=== PATIENT | male | born 1955 | race Caucasian/White ===

== ENCOUNTER → 2017-01-26 | Outpatient (CLI) | payer OTHER ==
--- NOTE | 2017-01-26 18:23 | RADIOLOGY REPORT (SQ) ---
EXAM DESCRIPTION: U/S RETROPERITON (RENAL/AORTA) COMPLETED DATE/TIME: 01/26/2017 3:51 pm REASON FOR STUDY: CKD STAGE 3 (MODERATE) N18.3 CHRONIC KIDNEY DISEASE, STAGE 3 (MODERATE) COMPARISON: None. TECHNIQUE: Dynamic and static grayscale images acquired of the kidneys and bladder and recorded on P ACS. Additional selected color Doppler and spectral images recorded. LIMITATIONS: None. FINDINGS: RIGHT KIDNEY: Normal size, 10.5 cm. Normal echogenicity. No solid or suspicious masses. No hydronephrosis. No calcifications. LEFT KIDNEY: Normal size, 9.9 cm. Normal echogenicity. No solid or suspicious masses. No hydronephro sis. No calcifications. BLADDER: Urinary bladder is normal. A right ureteral jet was seen. OTHER FINDINGS: No other significant finding. IMPRESSION: NORMAL RENAL AND BLADDER ULTRASOUND. TECHNICAL DOCUMENTATION: JOB ID: [id number] [employer]- All Rights Reserved
== END ==
LOC: RAD 15:14
PROVIDERS: ATTEND Internal Medicine Nephrology
DX: N18.3 Chronic kidney disease, stage 3 (moderate) (principal)
CPT/HCPCS: 76770

== ENCOUNTER 2017-07-23 21:27 | Emergency (ER) | payer MEDICARE, OTHER ==
--- NOTE | 2017-07-23 22:08 | RADIOLOGY REPORT (SQ) ---
EXAM DESCRIPTION: CT HEAD WITHOUT COMPLETED DATE/TIME: 07/23/2017 9:50 pm REASON FOR STUDY: stroke like sx COMPARISON: None. TECHNIQUE: Axial images acquired through the brain without intravenous contrast. Images reviewed wi th bone, brain and subdural windows. Images stored on PACS. All CT scanners at this facility use dose modulation, iterative reconstruction, and/or weight based d osing when appropriate to reduce radiation dose to as low as reasonably achievable (ALARA). [facility]: Dose Right [facility]: CareDose [facility]: Dose Right [facility]: Teradose 4D [facility]: [employer] RADIATION DOSE: CT Rad equipment meets quality standard of care and radiation dose reduction techniq ues were employed. CTDIvol: 64.6 mGy. DLP: 1163 mGy-cm. mGy. LIMITATIONS: None. FINDINGS: VENTRICLES: Prominent. CEREBRUM: No masses. No hemorrhage. No midline shift. Areas of low density in the white matter mos t likely due to chronic micro-vascular ischemic change. Small areas of low attenuation involving the right posterior temporal lobe seen on series 2, image 15 could represent subacute or chronic infarct ion. No definite evidence for acute infarction. CEREBELLUM: No masses. No hemorrhage. No alteration of density. No evidence for acute infarction. EXTRAAXIAL SPACES: Mild age-related involutional change. No fluid collections. No masses. ORBITS AND GLOBE: No intra- or extraconal masses. Normal contour of globe without masses. CALVARIUM: No fracture. PARANASAL SINUSES: No fluid or mucosal thickening. SOFT TISSUES: No mass or hematoma. OTHER: No other significant finding. IMPRESSION: AREAS OF LOW ATTENUATION INVOLVING THE RIGHT POSTERIOR TEMPORAL LOBE COULD REPRESENT SUB ACUTE OR CHRONIC INFARCTION. CORRELATE WITH PATIENT'S CLINICAL SYMPTOMS. NO DEFINITE CT EVIDENCE OF ACUTE ISCHEMIA, HEMORRHAGE, OR MASS LESION. MRI IS AVAILABLE FOR FURTHER EVALUATE CHARACTERIZATION CLINICALLY INDICATED. EVIDENCE OF ACUTE STROKE: NO. TECHNICAL DOCUMENTATION: JOB ID: [id number] Quality ID # [id number]: Final reports with documentation of one or more dose reduction techniques (e.g., Au tomated exposure control, adjustment of the mA and/or kV according to patient size, use of iterative reconstruction technique) 2010 [employer]- All Rights Reserved Reading location - IP/workstation name: [email or web address]
--- NOTE | 2017-07-23 22:12 | ER Document Report ---
ED NIH Stroke Scale - NIH Stroke Scale *: 1. NIH scale should be completed with appropriate accompanying assessment tools. *: 2. The NIH should reflect what the patient is capable of doing and should not be coached by the clinician. 1a. Level of Consciousness: 0=Alert;keenly responsive -: 1=Drowsy -: 2=Obtunded -: 3=Coma/unresponsive or reflex to noxious stimuli. 1a. Responses: 0 1b. Orientation Questions: a. What month is it? -: b. How old are you? -: 0=Answers both questions correctly. -: 1=Answers one question correctly or patient is intubated or has orotracheal trauma. -: 2=Answers neither question correctly. 1b. Responses: 0 1c. Response to commands: a. Open and close eyes? -: b. Validation Consultant and release hand? -: Credit is given despite weakness. Demonstration of task is permitted. Substitute command if hands cannot be used. -: 0=Performs both tasks correctly -: 1=Performs one task correctly -: 2=Performs neither task correctly 1c. Responses: 0 2. Gaze: Establish eye contact and instruct patient to "Follow my finger" -: 0=Normal -: 1=Partial gaze palsy. Gaze is abnormal in one or both eyes, but where forced deviation or total gaze paresis is not present. -: 2=Forced deviation or total gaze paresis. 2. Responses: 0 3. Visual [place]: Sees fingers in all four quadrants. -: 0=No visual loss. -: 1=Partial hemianopsia. -: 2=Complete hemianopsia. -: 3=Bilateral hemianopsia (including Cortical blindness) 3. Responses: 0 4. Facial Movement: Instruct patient to: -: a. Show me your teeth -: b. Raise your eyebrows -: c. Close your eyes -: d. Smile -: 0=Normal symmetrical movement -: 1=Minor paralysis (flattened nasolabial fold, asymmetry on smiling). -: 2=Partial paralysis (total or near total paralysis of lower face). -: 3=Complete paralysis of upper and lower face 4. Responses: 0 5. Motor functions (left arm): Alternate sides and extend each arm with palms down (90 degrees if sitting or 45 degrees for supine). -: 0=No drift;limb holds for full 10 seconds. -: 1=Drift; limb holds but drifts down before full 10 seconds, but does not hit bed. -: 2=Some effort against gravity; limb cannot get to or maintain position. -: 3=No effort against gravity; limb falls. -: 4=No movement. -: UN=Amputation, joint fusion, explain in comments. 5. Responses (left arm): 0 5. Motor Functions (right arm): Alternate sides and extend each arm with palms down (90 degrees if sitting or 45 degrees for supine). -: 0=No drift;limb holds for full 10 seconds. -: 1=Drift; limb holds but drifts down before full 10 seconds, but does not hit bed. -: 2=Some effort against gravity; limb cannot get to or maintain position. -: 3=No effort against gravity; limb falls. -: 4=No movement. -: UN=Amputation, joint fusion, explain in comments. 5. Responses (right arm): 0 6. Motor Functions (left leg): With patient lying supine, alternate sides and extend each leg (30 degrees always while supine). -: 0=No drift, leg holds position for full 5 seconds -: 1=Drift; leg falls before full 5 seconds but does not hit bed. -: 2=Some effort against gravity, leg falls to bed but some effort against gravity. -: 3=No effort against gravity, leg falls to bed immediately. -: 4=No movement. -: UN=Amputation, joint fusion; explain in comments. 6. Responses (left leg): 0 6. Motor Functions (right leg): With patient lying supine, alternate sides and extend each leg (30 degrees always while supine). -: 0=No drift, leg holds position for full 5 seconds -: 1=Drift; leg falls before full 5 seconds but does not hit bed. -: 2=Some effort against gravity, leg falls to bed but some effort against gravity. -: 3=No effort against gravity, leg falls to bed immediately. -: 4=No movement. -: UN=Amputation, joint fusion; explain in comments. 6. Responses (right leg): 0 7. Limb Ataxia: With eyes open instruct patient to: -: a. "Touch your finger to your nose". -: b. "Touch your heel to your [place]" -: 0=Absent -: 1=Present in one limb. -: 2=Present in two limbs. -: UN=Amputation or joint fusion; explain in comments. 7. Responses: 0 8. Sensory: Test sensation using pinprick or noxious stimuli. Test as many body parts as possible. -: 0=Normal;no sensory loss -: 1=Mile to moderate sensory loss (patient feels pin prick but is less sharp on affected side). -: 2=Severe or total sensory loss. 8. Responses: 1 9. Best Language: Instruct patient to: -: a. "Describe what you see in this picture." -: b. "Name the items in this picture." -: c. "Read these sentences." -: 0=No aphasia, normal -: 1=Mild to moderate aphasia. -: 2=Severe aphasia -: 3=Mute, global aphasia, no usable speech or auditory comprehension. 9. Responses: 0 10. Articulation, Dysarthia: Instruct patient to: -: "Read these words" or "Repeat these words" -: 0=Normal -: 1=Mild to moderate; patient may slur some words but can be understood without difficulty. -: 2=Severe; patients speech so slurred as to be unintelligible in the absence of dysphasia. -: UN=Intubated or other physical barrier, explain in comments. 10. Responses: 0 11. Extinction or inattention: 0=No abnormality -: 1= Visual, tactile, auditory, spatial, or personal inattention or extinction to bilateral simulation in one or the sensory modalities. -: 2=Profound lexy-inattention or lexy-inattention to more than one modality; does not recognize own hand. 11. Responses: 0 Total Score: 1 Notes: mild decreased sensation in left upper extremity which patient says is old from previous stroke.
--- NOTE | 2017-07-23 22:24 | ER Document Report ---
ED General - General Chief Complaint: S/S of Possible Stroke Stated Complaint: POSSIBLE STROKE SYMPTOMS Time Seen by Provider: 07/23/17 21:58 Notes: Patient is a 62-year-old male with a history of stroke who presents with complaint of onset of numbness to his right arm and some weakness to his right arm that started around 9 PM. Patient says he quickly developed almost complete numbness to his right hand and arm. He says his symptoms have since resolved. He says he has some chronic numbness to left side from a previous stroke that occurred in 2013. He is currently on Plavix. He denies a headache. He denies any other complaints at this time. He otherwise feels well. Patient is on aspirin and Plavix which he took today. TRAVEL OUTSIDE OF THE [place] IN LAST 30 DAYS: No - Related Data Allergies/Adverse Reactions: No Known Allergies Allergy (Unverified 07/23/17 21:35) Past Medical History - Social History Smoking Status: Never Smoker Frequency of alcohol use: None Drug Abuse: None Family History: Reviewed & Not Pertinent Review of Systems - Review of Systems Notes: My Normal Review Basic REVIEW OF SYSTEMS: CONSTITUTIONAL : Denies fever, chills, or sweats. Denies recent illness. EENT: Denies eye, ear, throat, or mouth pain or symptoms. Denies nasal or sinus congestion. CARDIOVASCULAR: Denies chest pain. RESPIRATORY: Denies cough, cold, or chest congestion. Denies shortness of breath, difficulty breathing, or wheezing. GASTROINTESTINAL: Denies abdominal pain. Denies nausea, vomiting, or diarrhea. Denies constipation. Last BM: MUSCULOSKELETAL: Denies neck or back pain or joint pain or swelling. SKIN: Denies rash or skin lesions. NEUROLOGICAL: Weakness and numbness into right arm and hand. ALL OTHER SYSTEMS REVIEWED AND NEGATIVE. Physical Exam - Vital signs Vitals: Temp Pulse Resp BP Pulse Ox 98.5 F 70 18 120/66 98 07/23/17 21:43 07/23/17 21:43 07/23/17 21:43 07/23/17 21:43 07/23/17 21:43 - Notes Notes: General Appearance: Well nourished, alert, cooperative, no acute distress, no obvious discomfort. Well-appearing. Vitals: reviewed, See vital signs table. Head: no swelling or tenderness to the head Eyes: PERRL, EOMI, Conjuctiva clear Mouth: No decreasd moisture Lungs: No wheezing, No rales, No rhonci, No accessory muscle use, good air exchange bilaterally. Heart: Normal rate, Regular rythm, No murmur, no rub Abdomen: Normal BS, soft, No rigidity, No abdominal tenderness, No guarding, no rebound, no abdominal masses, no organomegaly Extremities: strength 5/5 in all extremities, good pulses in all extremities, no swelling or tenderness in the extremities, no edema. Skin: warm, dry, appropriate color, no rash Neuro: speech clear, oriented x 3, normal affect, responds appropriately to questions. Cranial nerves II through XII are intact. Distal sensation intact. Patient is able to raise both arms off the bed and hold in the ear for greater than 5 seconds without any drift. Patient is able lift both legs off the bed and holding the air for greater than 5 seconds without any drift. Normal distal sensation with exception of patient says he has just very slight decreased sensation in left hand which is chronic from his previous stroke. Course - Re-evaluation Re-evalutation: 07/23/17 23:28 Patient continues to not show any new signs of stroke. I suspect he most likely had a TIA being that he has strokelike symptoms which completely resolved. Reevaluation patient looks well. He was able to ambulate without any difficulty. He says his gait is at baseline. Patient continues to not have any new focal weakness or numbness. His right side continues to be completely asymptomatic. His cranial nerves are completely intact. He has good strength in his left side as well. He just has a very small amount of numbness on the left side which is chronic. Patient is requesting discharge home. I did review with him the risks and benefits of staying versus going home. Informed him that he is at increased risk of stroke for next 24-48 hours due to just having a TIA. I informed him that because of this we do recommend staying for observation however he does have the option of going home and followed up closely with his primary care doctor tomorrow. I informed him that if he has any recurrence of his symptoms he must return to ER immediately. Patient is already on aspirin and Plavix. There is no further medications at this time. Patient agrees with plan will be discharged home. Dictation of this chart was performed using voice recognition software; therefore, there may be some unintended grammatical errors. - Vital Signs Vital signs: Temp Pulse Resp BP Pulse Ox 98.5 F 70 15 122/70 96 07/23/17 21:43 07/23/17 21:43 07/23/17 22:16 07/23/17 22:16 07/23/17 22:16 - Laboratory Result Diagrams: 07/23/17 22:00 07/23/17 22:00 Laboratory results interpreted by me: 07/23/17 07/23/17 22:00 22:00 Hgb 12.8 L Hct 37.7 L RDW 14.6 H Sodium 146.5 H Chloride 110 H BUN 28 H Creatinine 1.72 H Est GFR ( Amer) 49 L Est GFR (Non-Af Amer) 41 L Glucose 131 H Total Bilirubin 0.1 L - EKG Interpretation by Me Additional EKG results interpreted by me: 07/23/17 22:21 EKG is reviewed and interpreted by me. EKG shows normal sinus rhythm with a rate of [address] segment elevation or depression. No ischemic T-wave inversions. GA interval is prolonged. QRS duration and QTc intervals are within normal range. Discharge - Discharge Clinical Impression: TIA (transient ischemic attack) Qualifiers: Transient cerebral ischemia type: unspecified Qualified Code(s): G45.9 - Transient cerebral ischemic attack, unspecified Condition: Good Disposition: HOME, SELF-CARE Additional Instructions: Transient Ischemic Attack You have been diagnosed as having a transient ischemic attack (TIA). This is caused when an artery to the brain has been temporarily blocked. It can result in visual changes, difficulty with speech, and weakness or numbness -- usually limited to one side of the body. TIA symptoms usually resolve within an hour, but a TIA is serious, as it may be a warning sign of an impending stroke. To prevent further episodes, you may be placed on medication to reduce the possibility that your platelets will aggregate and form blood clots in the arteries that supply the brain. Usually, this includes aspirin and sometimes other platelet inhibitors. Further evaluation is often necessary to make an exact diagnosis as to where these blood clots are originating, and if anything else needs to be done to correct the problem. Call the physician or go to the emergency room if episodes occur with increasing frequency. If symptoms occur that don't go away within a few minutes , call 911. Please follow-up with your doctor tomorrow for reevaluation. As discussed with you, you are at increased risk for stroke over the next 24-48 hours. You must return to the ER immediately if you have any signs of stroke such as weakness or numbness that is new, slurred speech, confusion, or if you feel unwell. Please take your medications as prescribed. Referrals: BABAR RINCON MD [Primary Care Provider] - Follow up tomorrow
[2017-07-23 22:55] LABS: ABSOLUTE BASOPHILS # (AUTO) 0.1 10^3/uL (0.0-0.2); ABSOLUTE EOSINOPHILS # (AUTO) 0.4 10^3/uL (0.0-0.6); ABSOLUTE LYMPHOCYTES (AUTO) 2.1 10^3/uL (0.5-4.7); ABSOLUTE MONOCYTES (AUTO) 0.8 10^3/uL (0.1-1.4); ABSOLUTE NEUT (AUTO) 4.6 10^3/uL (1.7-8.2); BASOPHILS % (AUTO) 0.7 % (0-2); EOSINOPHILS % (AUTO) 4.9 % (0-6); HEMATOCRIT 37.7 % (37.9-51.0); HEMOGLOBIN 12.8 g/dL (13.5-17.0); LYMPHOCYTES % (AUTO) 26.7 % (13-45); MEAN CORPUSCULAR HEMOGLOBIN 28.6 pg (27.0-33.4); MEAN CORPUSCULAR HGB CONC 33.9 g/dL (32.0-36.0); MEAN CORPUSCULAR VOLUME 85 fl (80-97); MONOCYTES % (AUTO) 9.5 % (3-13); PLATELET COUNT 299 10^3/uL (150-450); RED BLOOD COUNT 4.46 10^6/uL (4.35-5.55); RED CELL DISTRIBUTION WIDTH 14.6 % (11.5-14.0); SEGMENTED NEUTROPHILS % (AUTO) 58.2 % (42-78); TOTAL CELLS COUNTED % (AUTO) 100 %; WHITE BLOOD COUNT 7.9 10^3/uL (4.0-10.5)
[2017-07-23 22:59] LABS: INTERNATIONAL RATION (INR) 0.96; PROTHROMBIN TIME 13.5 SEC (11.4-15.4)
[2017-07-23 23:00] LABS: ALANINE AMINOTRANSFERASE 32 U/L (21-72); ALBUMIN 4.4 g/dL (3.5-5.0); ALKALINE PHOSPHATASE 51 U/L (38-126); ANION GAP 11 (5-19); ASPARTATE AMINO TRANSFERASE 44 U/L (17-59); BILIRUBIN,DIRECT 0.1 mg/dL (0.0-0.4); BILIRUBIN,TOTAL 0.1 mg/dL (0.2-1.3); BLOOD UREA NITROGEN 28 mg/dL (7-20); CALCIUM 9.5 mg/dL (8.4-10.2); CARBON DIOXIDE 26 mmol/L (22-30); CHLORIDE 110 mmol/L (98-107); GLUCOSE 131 mg/dL (75-110); PARTIAL THROMBOPLASTIN TIME 31.8 SEC (23.5-35.8); POTASSIUM 3.8 mmol/L (3.6-5.0); SODIUM 146.5 mmol/L (137-145); TOTAL PROTEIN 6.8 g/dL (6.3-8.2)
[2017-07-23 23:39] VITALS: BP 139/79
--- NOTE | 2017-07-24 08:56 | EKG REPORT ---
SEVERITY:- ABNORMAL ECG - SINUS RHYTHM FIRST DEGREE AV BLOCK CONSIDER ANTEROSEPTAL INFARCT : Confirmed by: Vinod Jacobo MD 24-Jul-2017 08:55:27
== END 2017-07-23 23:52 | disposition home or self-care (01) ==
LOC: ER 21:27
DX: G45.9 Transient cerebral ischemic attack, unspecified (principal); R20.0 Anesthesia of skin; R53.1 Weakness; Z79.02 Long term (current) use of antithrombotics/antiplatelets
CPT/HCPCS: 36415; 70450; 80053; 85025; 85610; 85730; 93005; 93010; 99285

== ENCOUNTER → 2017-09-07 | Outpatient (CLI) | payer MEDICARE, OTHER ==
--- NOTE | 2017-09-07 17:57 | EKG REPORT ---
SEVERITY:- ABNORMAL ECG - SINUS RHYTHM FIRST DEGREE AV BLOCK CONSIDER ANTEROSEPTAL INFARCT : Confirmed by: Vinod Jacobo MD 07-Sep-2017 17:56:50
== END ==
LOC: OD 13:18
PROVIDERS: ATTEND Obstetrics & Gynecology
DX: I25.10 Atherosclerotic heart disease of native coronary artery without angina pectoris (principal)
CPT/HCPCS: 93005; 93010

== ENCOUNTER 2017-10-31 13:12 | Emergency (ER) | payer MEDICARE, OTHER ==
[2017-10-31 13:32] VITALS: BP 101/62
--- NOTE | 2017-10-31 13:48 | ER Document Report ---
HPI - HPI Pain Level: 3 Context: patient is a 62 year old male who presents emergency department the chief complaint of insect bite. Patient states that he was working outside when a spider web came down hit in the face. Patient states that he bit his upper lip and inside of his right arm. He denies any swelling, redness, pain, numbness or tingling. Patient denies any allergies. Past Medical History - Social History Smoking Status: Current Every Day Smoker Chew tobacco use (# tins/day): No Frequency of alcohol use: None Drug Abuse: None Family History: Reviewed & Not Pertinent Patient has suicidal ideation: No Patient has homicidal ideation: No - Past Medical History Cardiac Medical History: Reports: Hx Hypertension Endocrine Medical History: Reports: Hx Diabetes Mellitus Type 2 Renal/ Medical History: Denies: Hx Peritoneal Dialysis Past Surgical History: Reports: Hx Appendectomy Vertical Provider Document - CONSTITUTIONAL Agree With Documented VS: Yes Notes: PHYSICAL EXAM GENERAL: Alert, interacts well. HEAD: Normocephalic, atraumatic. EYES: Pupils equal, round, and reactive to light. Extraocular movements intact. ENT: Oral mucosa moist, tongue midline. Patient has a superficial abrasion with half a centimeter underlying induration in the center of the upper lip. NECK: Full range of motion. Supple. Trachea midline. EXTREMITIES: Moves all 4 extremities spontaneously. No edema, radial and dorsalis pedis pulses 2/4 bilaterally. No cyanosis. NEUROLOGICAL: Alert and oriented x4. Normal speech. PSYCH: Normal affect, normal mood. SKIN: Warm, dry, normal turgor. No rashes or lesions noted. Patient has a insect bite on the medial aspect of the right arm without any surrounding bruising, induration or erythema - INFECTION CONTROL TRAVEL OUTSIDE OF THE [place] IN LAST 30 DAYS: No Course - Re-evaluation Re-evalutation: 10/31/17 13:48 Patient is a 62-year-old male is hemodynamically stable, no acute distress and afebrile. Presentation is consistent with acute insect bite there is no evidence of surrounding erythema, associated vascular neurological injury. Will discharge patient home with strict return precautions - Vital Signs Vital signs: Temp Pulse Resp BP Pulse Ox 99.0 F 68 14 101/62 97 10/31/17 13:30 10/31/17 13:30 10/31/17 13:30 10/31/17 13:30 10/31/17 13:30 Discharge - Discharge Clinical Impression: Insect bite Qualifiers: Encounter type: initial encounter Qualified Code(s): W57.XXXA - Bitten or stung by nonvenomous insect and other nonvenomous arthropods, initial encounter Condition: Good Disposition: HOME, SELF-CARE Instructions: Insect Bites ([facility]) Referrals: BABAR RINCON MD [Primary Care Provider] - Follow up in 1 week
[2017-10-31] MEDS ORDERED: DIPHENHYDRAMINE HCL 25 MG CAPSULE PO ONE (13:52)
[2017-10-31] MEDS ORDERED: ACETAMINOPHEN 325 MG TABLET PO ONE (13:52)
== END 2017-10-31 14:01 | disposition home or self-care (01) ==
LOC: ER 13:12
DX: S40.861A Insect bite (nonvenomous) of right upper arm, initial encounter (principal); S00.561A Insect bite (nonvenomous) of lip, initial encounter; W57.XXXA Bitten or stung by nonvenomous insect and other nonvenomous arthropods, initial encounter; I10 Essential (primary) hypertension; E11.9 Type 2 diabetes mellitus without complications; F17.200 Nicotine dependence, unspecified, uncomplicated
CPT/HCPCS: 99281; A9270 ×2

== ENCOUNTER 2017-11-03 01:32 | Inpatient (IN) | payer MEDICARE, OTHER ==
--- NOTE | 2017-11-03 02:12 | ER Document Report ---
ED General - General Chief Complaint: Numbness Stated Complaint: LEFT SIDE WEAKNESS Time Seen by Provider: 11/03/17 01:49 Notes: Patient is a 62-year-old male who presents with complaints of left-sided weakness. He has a previous stroke in 2013 with left him with some left-sided numbness but no actual dysfunction of the left side otherwise when he comes physical movement. He says around 12 hours ago he started noticing that he was weak on that side. Initially thought maybe is just exhausted; however, at that time he did not have any right-sided weakness at all. Since then his weakness has progressed and is actually feels as if his speech is slower than normal and is taking time to say exactly what he wants to say. He denies a headache. No chest pain. No shortness of breath. No fevers. No other complaints at this time. Patient is on Plavix. He said he took his Plavix today but has not yet taken his aspirin. TRAVEL OUTSIDE OF THE [place] IN LAST 30 DAYS: No - Related Data Allergies/Adverse Reactions: No Known Allergies Allergy (Unverified 07/23/17 21:35) Past Medical History - Social History Smoking Status: Unknown if Ever Smoked Frequency of alcohol use: None Drug Abuse: None Family History: Reviewed & Not Pertinent Patient has suicidal ideation: No Patient has homicidal ideation: No - Past Medical History Cardiac Medical History: Reports: Hx Hypertension Endocrine Medical History: Reports: Hx Diabetes Mellitus Type 2 Renal/ Medical History: Denies: Hx Peritoneal Dialysis Past Surgical History: Reports: Hx Appendectomy Review of Systems - Review of Systems Notes: My Normal Review Basic REVIEW OF SYSTEMS: CONSTITUTIONAL : Denies fever, chills, or sweats. Denies recent illness. EENT: Denies eye, ear, throat, or mouth pain or symptoms. Denies nasal or sinus congestion. CARDIOVASCULAR: Denies chest pain. RESPIRATORY: Denies cough, cold, or chest congestion. Denies shortness of breath, difficulty breathing, or wheezing. GASTROINTESTINAL: Denies abdominal pain. Denies nausea, vomiting, or diarrhea. GENITOURINARY: Denies difficulty urinating, painful urination, burning, frequency, or blood in urine. MUSCULOSKELETAL: Mild left shoulder pain SKIN: Denies rash or skin lesions. NEUROLOGICAL: Left-sided weakness ALL OTHER SYSTEMS REVIEWED AND NEGATIVE. Physical Exam - Vital signs Vitals: Temp Pulse Resp BP Pulse Ox 98.0 F 68 16 99/67 L 95 11/03/17 01:41 11/03/17 01:41 11/03/17 01:41 11/03/17 01:41 11/03/17 01:41 - Notes Notes: General Appearance: Well nourished, alert, cooperative, no acute distress, no obvious discomfort. Vitals: reviewed, See vital signs table. Head: no swelling or tenderness to the head Eyes: PERRL, EOMI, Conjuctiva clear Mouth: No decreasd moisture Lungs: No wheezing, No rales, No rhonci, No accessory muscle use, good air exchange bilaterally. Heart: Normal rate, Regular rythm, No murmur, no rub Abdomen: Normal BS, soft, No rigidity, No abdominal tenderness, No guarding, no rebound, no abdominal masses, no organomegaly Extremities: strength 5/5 in all extremities, good pulses in all extremities, no swelling or tenderness in the extremities, no edema. Skin: warm, dry, appropriate color, no rash Neuro: speech clear, oriented x 3, normal affect, responds appropriately to questions. Renal nerves II through XII are intact. Patient does have some chronic numbness to left side. On exam he is able to lift his left leg off the bed but is only able to keep it off the bed for 1-2 seconds. Right leg has normal strength. Patient is able lift his left arm off the bed but says he feels weaker than his right side. When doing finger to nose testing patient's right side has normal function. When using the patient's left hand he misses my finger and is very slow to be able to touch my finger and then go back to his nose. Gait not tested weeks patient says he has a very hard time standing and walking his own. Course - Re-evaluation Re-evalutation: 11/03/17 03:55 On reevaluation patient's symptoms have not improved. They have remained the same. We will give patient aspirin. He received Plavix earlier but has not yet had his aspirin. There is no evidence of bleeding on the skin and therefore aspirin is appropriate. I did speak with the hospitalist, Dr. Jc, who agrees to admit the patient. Dictation of this chart was performed using voice recognition software; therefore, there may be some unintended grammatical errors. - Vital Signs Vital signs: Temp Pulse Resp BP Pulse Ox 98.0 F 58 L 18 133/70 H 99 11/03/17 05:36 11/03/17 05:36 11/03/17 05:36 11/03/17 05:36 11/03/17 05:36 - Laboratory Result Diagrams: 11/03/17 02:28 11/03/17 02:28 Laboratory results interpreted by me: 11/03/17 11/03/17 02:28 02:28 Hgb 13.3 L RDW 14.8 H Chloride 110 H BUN 26 H Creatinine 1.51 H Est GFR ( Amer) 57 L Est GFR (Non-Af Amer) 47 L Glucose 183 H Total Bilirubin 0.1 L - EKG Interpretation by Me Additional EKG results interpreted by me: 11/03/17 02:22 EKG is reviewed and interpreted by me. EKG shows sinus rhythm with a rate of [address] segment elevation or depression. No ischemic T-wave inversions. Patient does have a MO interval of 240 given him a first-degree AV theodore block. QRS duration QTc intervals are within normal range. Old EKG for comparison is from September 07, 2017. Discharge - Discharge Clinical Impression: Stroke Qualifiers: CVA mechanism: unspecified Qualified Code(s): I63.9 - Cerebral infarction, unspecified Condition: Stable Disposition: ADMITTED OBSERVATION Admitting Provider: Hospitalist Unit Admitted: [facility]
--- NOTE | 2017-11-03 02:14 | ER Document Report ---
ED NIH Stroke Scale - NIH Stroke Scale *: 1. NIH scale should be completed with appropriate accompanying assessment tools. *: 2. The NIH should reflect what the patient is capable of doing and should not be coached by the clinician. 1a. Level of Consciousness: 0=Alert;keenly responsive -: 1=Drowsy -: 2=Obtunded -: 3=Coma/unresponsive or reflex to noxious stimuli. 1a. Responses: 0 1b. Orientation Questions: a. What month is it? -: b. How old are you? -: 0=Answers both questions correctly. -: 1=Answers one question correctly or patient is intubated or has orotracheal trauma. -: 2=Answers neither question correctly. 1b. Responses: 0 1c. Response to commands: a. Open and close eyes? -: b. Geography Head and release hand? -: Credit is given despite weakness. Demonstration of task is permitted. Substitute command if hands cannot be used. -: 0=Performs both tasks correctly -: 1=Performs one task correctly -: 2=Performs neither task correctly 1c. Responses: 0 2. Gaze: Establish eye contact and instruct patient to "Follow my finger" -: 0=Normal -: 1=Partial gaze palsy. Gaze is abnormal in one or both eyes, but where forced deviation or total gaze paresis is not present. -: 2=Forced deviation or total gaze paresis. 2. Responses: 0 3. Visual [place]: Sees fingers in all four quadrants. -: 0=No visual loss. -: 1=Partial hemianopsia. -: 2=Complete hemianopsia. -: 3=Bilateral hemianopsia (including Cortical blindness) 3. Responses: 0 4. Facial Movement: Instruct patient to: -: a. Show me your teeth -: b. Raise your eyebrows -: c. Close your eyes -: d. Smile -: 0=Normal symmetrical movement -: 1=Minor paralysis (flattened nasolabial fold, asymmetry on smiling). -: 2=Partial paralysis (total or near total paralysis of lower face). -: 3=Complete paralysis of upper and lower face 4. Responses: 0 5. Motor functions (left arm): Alternate sides and extend each arm with palms down (90 degrees if sitting or 45 degrees for supine). -: 0=No drift;limb holds for full 10 seconds. -: 1=Drift; limb holds but drifts down before full 10 seconds, but does not hit bed. -: 2=Some effort against gravity; limb cannot get to or maintain position. -: 3=No effort against gravity; limb falls. -: 4=No movement. -: UN=Amputation, joint fusion, explain in comments. 5. Responses (left arm): 1 5. Motor Functions (right arm): Alternate sides and extend each arm with palms down (90 degrees if sitting or 45 degrees for supine). -: 0=No drift;limb holds for full 10 seconds. -: 1=Drift; limb holds but drifts down before full 10 seconds, but does not hit bed. -: 2=Some effort against gravity; limb cannot get to or maintain position. -: 3=No effort against gravity; limb falls. -: 4=No movement. -: UN=Amputation, joint fusion, explain in comments. 5. Responses (right arm): 0 6. Motor Functions (left leg): With patient lying supine, alternate sides and extend each leg (30 degrees always while supine). -: 0=No drift, leg holds position for full 5 seconds -: 1=Drift; leg falls before full 5 seconds but does not hit bed. -: 2=Some effort against gravity, leg falls to bed but some effort against gravity. -: 3=No effort against gravity, leg falls to bed immediately. -: 4=No movement. -: UN=Amputation, joint fusion; explain in comments. 6. Responses (left leg): 2 6. Motor Functions (right leg): With patient lying supine, alternate sides and extend each leg (30 degrees always while supine). -: 0=No drift, leg holds position for full 5 seconds -: 1=Drift; leg falls before full 5 seconds but does not hit bed. -: 2=Some effort against gravity, leg falls to bed but some effort against gravity. -: 3=No effort against gravity, leg falls to bed immediately. -: 4=No movement. -: UN=Amputation, joint fusion; explain in comments. 6. Responses (right leg): 0 7. Limb Ataxia: With eyes open instruct patient to: -: a. "Touch your finger to your nose". -: b. "Touch your heel to your mcfarland" -: 0=Absent -: 1=Present in one limb. -: 2=Present in two limbs. -: UN=Amputation or joint fusion; explain in comments. 7. Responses: 1 7. If ataxia present choose as appropriate: Left arm 8. Sensory: Test sensation using pinprick or noxious stimuli. Test as many body parts as possible. -: 0=Normal;no sensory loss -: 1=Mile to moderate sensory loss (patient feels pin prick but is less sharp on affected side). -: 2=Severe or total sensory loss. 8. Responses: 1 9. Best Language: Instruct patient to: -: a. "Describe what you see in this picture." -: b. "Name the items in this picture." -: c. "Read these sentences." -: 0=No aphasia, normal -: 1=Mild to moderate aphasia. -: 2=Severe aphasia -: 3=Mute, global aphasia, no usable speech or auditory comprehension. 9. Responses: 1 10. Articulation, Dysarthia: Instruct patient to: -: "Read these words" or "Repeat these words" -: 0=Normal -: 1=Mild to moderate; patient may slur some words but can be understood without difficulty. -: 2=Severe; patients speech so slurred as to be unintelligible in the absence of dysphasia. -: UN=Intubated or other physical barrier, explain in comments. 10. Responses: 0 11. Extinction or inattention: 0=No abnormality -: 1= Visual, tactile, auditory, spatial, or personal inattention or extinction to bilateral simulation in one or the sensory modalities. -: 2=Profound lexy-inattention or lexy-inattention to more than one modality; does not recognize own hand. 11. Responses: 0 Total Score: 6
[2017-11-03 02:37] LABS: ABSOLUTE BASOPHILS # (AUTO) 0.1 10^3/uL (0.0-0.2); ABSOLUTE EOSINOPHILS # (AUTO) 0.4 10^3/uL (0.0-0.6); ABSOLUTE LYMPHOCYTES (AUTO) 1.6 10^3/uL (0.5-4.7); ABSOLUTE MONOCYTES (AUTO) 0.7 10^3/uL (0.1-1.4); BASOPHILS % (AUTO) 0.7 % (0-2); EOSINOPHILS % (AUTO) 5.4 % (0-6); HEMATOCRIT 38.7 % (37.9-51.0); HEMOGLOBIN 13.3 g/dL (13.5-17.0); LYMPHOCYTES % (AUTO) 20.5 % (13-45); MEAN CORPUSCULAR HEMOGLOBIN 28.9 pg (27.0-33.4); MEAN CORPUSCULAR HGB CONC 34.2 g/dL (32.0-36.0); MEAN CORPUSCULAR VOLUME 84 fl (80-97); MONOCYTES % (AUTO) 9.2 % (3-13); PLATELET COUNT 286 10^3/uL (150-450); RED CELL DISTRIBUTION WIDTH 14.8 % (11.5-14.0); SEGMENTED NEUTROPHILS % (AUTO) 64.2 % (42-78); TOTAL CELLS COUNTED % (AUTO) 100 %; WHITE BLOOD COUNT 7.8 10^3/uL (4.0-10.5)
[2017-11-03 02:43] LABS: INTERNATIONAL RATION (INR) 0.99; PROTHROMBIN TIME 13.6 SEC (11.4-15.4)
[2017-11-03 02:44] LABS: PARTIAL THROMBOPLASTIN TIME 30.9 SEC (23.5-35.8)
[2017-11-03 02:54] LABS: ALANINE AMINOTRANSFERASE 32 U/L (21-72); ALBUMIN 4.1 g/dL (3.5-5.0); ALKALINE PHOSPHATASE 56 U/L (38-126); ANION GAP 9 (5-19); ASPARTATE AMINO TRANSFERASE 26 U/L (17-59); BILIRUBIN,DIRECT 0.1 mg/dL (0.0-0.4); BILIRUBIN,TOTAL 0.1 mg/dL (0.2-1.3); BLOOD UREA NITROGEN 26 mg/dL (7-20); CALCIUM 9.6 mg/dL (8.4-10.2); CARBON DIOXIDE 26 mmol/L (22-30); CHLORIDE 110 mmol/L (98-107); GLUCOSE 183 mg/dL (75-110); POTASSIUM 4.4 mmol/L (3.6-5.0); SODIUM 144.8 mmol/L (137-145); TOTAL PROTEIN 6.4 g/dL (6.3-8.2)
--- NOTE | 2017-11-03 03:27 | RADIOLOGY REPORT (SQ) ---
EXAM DESCRIPTION: CT HEAD WITHOUT IV CONTRAST CLINICAL HISTORY: 62 years Male, stroke COMPARISON: 2.23.18 TECHNIQUE: No contrast. Axial images only. This exam was performed according to our departmental dose-optimization program, which includes automated exposure control, adjustment of the mA and/or kV according to patient size and/or use of iterative reconstruction technique. FINDINGS: No hemorrhage. No mass, mass effect, or midline shift. Mild chronic encephalomalacia of the right temporal lobe. Atherosclerosis Brain and extra-axial structures appear intact. IMPRESSION: No acute findings. Small chronic right temporal encephalomalacia may indicate prior infarct.
[2017-11-03] MEDS ORDERED: ASPIRIN 81 MG TABLET, CHEWABLE PO ONE (03:52)
[2017-11-03] MEDS ORDERED: MAGNESIUM HYDROXIDE SUSP 30 ML UDCUP PO PRN (04:00)
[2017-11-03] MEDS ORDERED: GLUCAGON,HUMAN RECOMB 1 MG INJ IM PRN (04:00)
[2017-11-03] MEDS ORDERED: ACETAMINOPHEN 325 MG TABLET PO PRN (04:00)
[2017-11-03] MEDS ORDERED: DEXTROSE 40% GEL 15 GM TUBE PO PRN ×2 (04:00)
[2017-11-03] MEDS ORDERED: DEXTROSE 50%-WATER 25 GM/50 ML DISP.SYRIN IV PRN ×2 (04:00)
[2017-11-03] MEDS ORDERED: DOCUSATE SODIUM 100 MG CAPSULE PO PRN (04:00)
[2017-11-03] MEDS: NORMAL SALINE 1000 ML 1,000 ML IV SCH ×2 (04:14→09:16)
[2017-11-03] MEDS ORDERED: HEPARIN SOD (PORCINE) 5,000 UNIT/ML 1 ML SYRINGE SUBCUT SCH (06:00)
--- NOTE | 2017-11-03 06:31 | PDOC H&P ---
History of Present Illness Admission Date/PCP: 11/03/17 04:23 Patient complains of: Left-sided weakness History of Present Illness: LACI NICHOLAS is a 62 year old male with a history of CVA and residual left- sided numbness intermittent dizziness, hypertension, diabetes, Tobacco Dependence and depression. Patient presents with 12 hours of weakness on the left side associated with dizziness, slurred speech and word finding difficulty. Symptoms have worsened prompting him to seek evaluation emergency room where his symptoms persist. He denies recent change in medications but admits missing Plavix and aspirin dose today. Initial biochemical and imaging workup are unremarkable with exception to former findings. He started on aspirin and Plavix, referred to the hospitalist for admission. Patient denies palpitations and has had a negative echocardiogram in the last 6 months in the workup of a murmur. The results of which she is told are normal. Past Medical History Cardiac Medical History: Reports: Hypertension Denies: Atrial Fibrillation, Congestive Heart Failure, Coronary Artery Disease Pulmonary Medical History: Reports: None EENT Medical History: Reports: None Neurological Medical History: Reports: Ischemic CVA Endocrine Medical History: Reports: Diabetes Mellitus Type 2 GI Medical History: Reports: None Musculoskeltal Medical History: Reports: None Skin Medical History: Reports: None Psychiatric Medical History: Reports: Depression Traumatic Medical History: Reports: None Hematology: Reports: None Past Surgical History Past Surgical History: Reports: Appendectomy Social History Information Source: Patient Lives with: Spouse/Significant other Smoking Status: Unknown if Ever Smoked Cigarettes Packs Per Day: 0.5 Number of Years Smokin Frequency of Alcohol Use: None Hx Recreational Drug Use: No Hx Prescription Drug Abuse: No - Advance Directive Resuscitation Status: Full Code Family History Family History: None - Unknown patient adopted Parental Family History Reviewed: Yes Children Family History Reviewed: Yes Sibling(s) Family History Reviewed.: Yes Medication/Allergy Allergies/Adverse Reactions: No Known Allergies Allergy (Unverified 07/23/17 21:35) Review of Systems Constitutional: ABSENT: chills, fever(s), headache(s), weight gain, weight loss Eyes: ABSENT: visual disturbances Ears: ABSENT: hearing changes Cardiovascular: ABSENT: chest pain, dyspnea on exertion, edema, orthropnea, palpitations Respiratory: ABSENT: cough, hemoptysis Gastrointestinal: ABSENT: abdominal pain, constipation, diarrhea, hematemesis, hematochezia, nausea, vomiting Genitourinary: ABSENT: dysuria, hematuria Musculoskeletal: ABSENT: joint swelling Integumentary: ABSENT: rash, wounds Neurological: ABSENT: abnormal gait, abnormal speech, confusion, dizziness, focal weakness, syncope Psychiatric: ABSENT: anxiety, depression, homidical ideation, suicidal ideation Endocrine: ABSENT: cold intolerance, heat intolerance, polydipsia, polyuria Hematologic/Lymphatic: ABSENT: easy bleeding, easy bruising Physical Exam Vital Signs: Temp Pulse Resp BP Pulse Ox 98.0 F 58 L 18 133/70 H 99 11/03/17 05:36 11/03/17 06:07 11/03/17 06:07 11/03/17 06:07 11/03/17 06:07 Intake & Output 11/01/17 11/02/17 11/03/17 11:59 11:59 11:59 Intake Total 10 Balance 10 Weight 91.172 kg General appearance: PRESENT: mild distress, well-developed, well-nourished Head exam: PRESENT: atraumatic, normocephalic Eye exam: PRESENT: conjunctiva pink, EOMI, PERRLA. ABSENT: scleral icterus Ear exam: PRESENT: normal external ear exam Mouth exam: PRESENT: moist, tongue midline Neck exam: ABSENT: carotid bruit, JVD, lymphadenopathy, thyromegaly Respiratory exam: PRESENT: clear to auscultation elenita. ABSENT: rales, rhonchi, wheezes Cardiovascular exam: PRESENT: RRR. ABSENT: diastolic murmur, rubs, systolic murmur Pulses: PRESENT: normal dorsalis pedis pul Vascular exam: PRESENT: normal capillary refill GI/Abdominal exam: PRESENT: normal bowel sounds, soft. ABSENT: distended, guarding, mass, organolmegaly, rebound, tenderness Rectal exam: PRESENT: deferred Extremities exam: PRESENT: full ROM. ABSENT: calf tenderness, clubbing, pedal edema Musculoskeletal exam: PRESENT: other - Definite 4+ strength on the left side Neurological exam: PRESENT: alert, awake, oriented to person, oriented to place , oriented to time, oriented to situation, CN II-XII grossly intact. ABSENT: motor sensory deficit Psychiatric exam: PRESENT: appropriate affect, normal mood. ABSENT: homicidal ideation, suicidal ideation Skin exam: PRESENT: dry, intact, warm. ABSENT: cyanosis, rash Results Impressions: Head CT 11/03/17 02:07 IMPRESSION: No acute findings. Small chronic right temporal encephalomalacia may indicate prior infarct. Assessment & Plan - Diagnosis (1) Diabetes Is this a current diagnosis for this admission?: Yes Plan: Home regiment with exception to metformin and sliding scale Humalog, follow-up A1c (2) Left-sided weakness Is this a current diagnosis for this admission?: Yes Plan: Acute CVA, CVA care set likely secondary to missed aspirin and Plavix. Resume Plavix and aspirin, Lipitor ordered, follow-up lipid profile, physical therapy and Occupational Therapy (3) Tobacco abuse Is this a current diagnosis for this admission?: Yes Plan: Tobacco Dependence patient received tobacco cessation counseling and offered nicotine replacement options - Time Time Spent: 50 to 70 Minutes - Inpatient Certification Medical Necessity: Need Close Monitoring Due to Risk of Patient Decompensation
[2017-11-03 07:44] LABS: ABSOLUTE BASOPHILS # (AUTO) 0.1 10^3/uL (0.0-0.2); ABSOLUTE EOSINOPHILS # (AUTO) 0.5 10^3/uL (0.0-0.6); ABSOLUTE MONOCYTES (AUTO) 0.7 10^3/uL (0.1-1.4); ABSOLUTE NEUT (AUTO) 4.5 10^3/uL (1.7-8.2); BASOPHILS % (AUTO) 0.8 % (0-2); EOSINOPHILS % (AUTO) 5.8 % (0-6); HEMOGLOBIN 12.7 g/dL (13.5-17.0); MEAN CORPUSCULAR HEMOGLOBIN 28.8 pg (27.0-33.4); MEAN CORPUSCULAR HGB CONC 34.3 g/dL (32.0-36.0); MEAN CORPUSCULAR VOLUME 84 fl (80-97); MONOCYTES % (AUTO) 9.1 % (3-13); PLATELET COUNT 269 10^3/uL (150-450); RED BLOOD COUNT 4.41 10^6/uL (4.35-5.55); RED CELL DISTRIBUTION WIDTH 14.5 % (11.5-14.0); SEGMENTED NEUTROPHILS % (AUTO) 58.3 % (42-78); TOTAL CELLS COUNTED % (AUTO) 100 %; WHITE BLOOD COUNT 7.8 10^3/uL (4.0-10.5)
[2017-11-03 07:59] LABS: ANION GAP 8 (5-19); BLOOD UREA NITROGEN 24 mg/dL (7-20); CALCIUM 9.3 mg/dL (8.4-10.2); CARBON DIOXIDE 25 mmol/L (22-30); CHLORIDE 112 mmol/L (98-107); GLUCOSE 145 mg/dL (75-110); POTASSIUM 4.6 mmol/L (3.6-5.0); SODIUM 144.9 mmol/L (137-145)
--- NOTE | 2017-11-03 08:14 | EKG REPORT ---
SEVERITY:- ABNORMAL ECG - SINUS RHYTHM FIRST DEGREE AV BLOCK : Confirmed by: Karina Fournier MD 03-Nov-2017 08:14:24
[2017-11-03 08:26] LABS: PHOSPHORUS 3.4 mg/dL (2.5-4.5)
[2017-11-03] MEDS: ENOXAPARIN SODIUM INJ 40 MG/0.4 ML DISP.SYRIN SUBCUT SCH ×2 (09:17→12:14)
[2017-11-03] MEDS: CITALOPRAM HYDROBROMIDE 20 MG TABLET PO SCH (09:18)
[2017-11-03] MEDS: ASPIRIN 325 MG TABLET PO SCH (09:18)
[2017-11-03] MEDS: LEVOTHYROXINE SODIUM 0.025 MG TABLET PO SCH (09:18)
[2017-11-03] MEDS: CLOPIDOGREL BISULFATE 75 MG TABLET PO SCH (09:20)
[2017-11-03] MEDS: PSYLLIUM SEED-SF 5.85 GM PACKET PO SCH (09:37)
[2017-11-03] MEDS ORDERED: ASPIRIN 81 MG TABLET, ENT COATED PO SCH (10:00)
[2017-11-03] MEDS ORDERED: FENOFIBRATE NANOCRYSTALLIZED 145 MG TABLET PO SCH ×2 (10:00→18:00)
[2017-11-03] MEDS ORDERED: OMEGA 3 FATTY ACIDS PO SCH (10:00)
[2017-11-03] MEDS ORDERED: GABAPENTIN 300 MG CAPSULE PO SCH ×2 (10:00→18:00)
--- NOTE | 2017-11-03 12:08 | RADIOLOGY REPORT (SQ) ---
EXAM DESCRIPTION: MRI HEAD WITHOUT COMPLETED DATE/TIME: 11/03/2017 11:52 am REASON FOR STUDY: cva COMPARISON: CT dated 11/03/2017. TECHNIQUE: Multiplanar imaging includes non-contrasted T1, T2, FLAIR, and diffusion with ADC map seq uences. Images stored on PACS. LIMITATIONS: None. FINDINGS: ANATOMY: No anomalies. Normal vascular flow voids. Pituitary fossa normal. CSF SPACES: Normal in size and contour. No hemorrhage. CEREBRUM: Sulci and gyri normal in size and contour. Normal white matter signal on FLAIR imaging. No evidence of hemorrhage, mass, or extraaxial fluid collection. POSTERIOR FOSSA: No signal alteration. No hemorrhage. No edema, masses or mass effect. Internal camacho tory canals, cerebello-pontine angles, mastoids normal. DIFFUSION IMAGING: Focal area of restricted diffusion in the right ki. ORBITS: No masses. Globes normal. PARANASAL SINUSES: No fluid levels. Mucosa normal. OTHER: No other significant finding. IMPRESSION: FOCAL AREA OF RESTRICTED DIFFUSION IN THE RIGHT KI CONSISTENT WITH ACUTE INFARCT. EVIDENCE OF ACUTE STROKE: YES. 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
--- NOTE | 2017-11-03 14:26 | PDOC PROGRESS REPORT ---
Subjective Progress Note for:: 11/03/17 Subjective:: No complaints at present. Speech is improving though not yet at baseline. He has L sided facial dropp from a prior CVA, but aphasia and L arm and L leg pain are new from yesterday. MRI brain, echo, carotid dopplers pending Reason For Visit: CVA Physical Exam Vital Signs: Temp Pulse Resp BP Pulse Ox 97.7 F 63 14 155/66 H 97 11/03/17 12:07 11/03/17 12:07 11/03/17 12:07 11/03/17 12:07 11/03/17 12:07 Intake & Output 11/02/17 11/03/17 11/04/17 06:59 06:59 06:59 Intake Total 10 455 Balance 10 455 Weight 91.172 kg General appearance: PRESENT: no acute distress Head exam: PRESENT: normocephalic Eye exam: PRESENT: PERRLA. ABSENT: scleral icterus Mouth exam: PRESENT: moist, neck supple Respiratory exam: PRESENT: symmetrical, unlabored. ABSENT: crackles Cardiovascular exam: PRESENT: RRR. ABSENT: systolic murmur GI/Abdominal exam: PRESENT: normal bowel sounds, soft. ABSENT: tenderness Rectal exam: PRESENT: deferred Gentrourinary exam: ABSENT: indwelling catheter Extremities exam: ABSENT: calf tenderness, pedal edema Neurological exam: PRESENT: alert, awake, oriented to person, oriented to place , oriented to time, oriented to situation, other - milf L facial droop L arm pronator drift L arm strength 4/5 L leg strength 4/5 Psychiatric exam: PRESENT: appropriate affect. ABSENT: agitated Skin exam: ABSENT: rash Results Laboratory Results: 11/03/17 07:15 11/03/17 07:15 11/03/17 11/03/17 11/03/17 07:15 07:15 07:15 WBC 7.8 RBC 4.41 Hgb 12.7 L Hct 37.0 L MCV 84 MCH 28.8 MCHC 34.3 RDW 14.5 H Plt Count 269 Seg Neutrophils % 58.3 Lymphocytes % 26.0 Monocytes % 9.1 Eosinophils % 5.8 Basophils % 0.8 Absolute Neutrophils 4.5 Absolute Lymphocytes 2.0 Absolute Monocytes 0.7 Absolute Eosinophils 0.5 Absolute Basophils 0.1 Sodium 144.9 Potassium 4.6 Chloride 112 H Carbon Dioxide 25 Anion Gap 8 BUN 24 H Creatinine 1.35 H Est GFR ( Amer) > 60 Est GFR (Non-Af Amer) 54 L Glucose 145 H Calcium 9.3 Phosphorus 3.4 Magnesium 1.9 Impressions: Head MRI 11/03/17 00:00 IMPRESSION: FOCAL AREA OF RESTRICTED DIFFUSION IN THE RIGHT KI CONSISTENT WITH ACUTE INFARCT. EVIDENCE OF ACUTE STROKE: YES. 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 Small chronic right temporal encephalomalacia may indicate prior infarct. Assessment & Plan - Diagnosis (1) Left-sided weakness Is this a current diagnosis for this admission?: Yes Plan: Likely due to acute CVA. Continue ASA, Plavix, Statin Continue neuro checks, tele, speech eval, OT, PT f/u MRI, Echo and carotid dopplers (2) Tobacco abuse Is this a current diagnosis for this admission?: Yes (3) Diabetes Qualifiers: Diabetes mellitus type: type 2 Is this a current diagnosis for this admission?: Yes Plan: Continue Insulin sliding scale (4) Hypothyroidism Is this a current diagnosis for this admission?: Yes - Time Time Spent with patient: 25-34 minutes
--- NOTE | 2017-11-03 16:47 | RADIOLOGY REPORT (SQ) ---
EXAM DESCRIPTION: CAROTID DOPPLER COMPLETED DATE/TIME: 11/03/2017 4:35 pm REASON FOR STUDY: cva COMPARISON: None. TECHNIQUE: Grayscale ultrasound, Doppler velocity and spectra, and color Doppler images acquired of the extra-cranial carotid and vertebral arteries. Images stored on PACS. LIMITATIONS: None. FINDINGS: RIGHT CAROTID CCA Velocities: Within normal limits. ICA Velocities Peak systolic 1.12 m/s. End diastolic 0.32 m/s. Proximal ICA/CCA peak systolic ratio 1.28. Spectra normal. No significant plaque. LEFT CAROTID CCA Velocities: Within normal limits. ICA Velocities Peak systolic 0.96 m/s. End diastolic 0.09 m/s. Proximal ICA/CCA peak systolic ratio 1.12. Spectra normal. No significant plaque. VERTEBRAL ARTERIES: Not visualized. SUBCLAVIAN ARTERIES: No finding. OTHER: No other significant finding. IMPRESSION: NO HEMODYNAMICALLY SIGNIFICANT STENOSIS. THE VERTEBRAL ARTERIES ARE NOT ADEQUATELY VISU ALIZED. COMMENT: Quality ID #[id number]: Velocity criteria are extrapolated from the diameter data as defined by t he Society of Radiologists in Ultrasound Consensus Conference. Radiology 2003: 229; 340-346. TECHNICAL DOCUMENTATION: JOB ID: [id number] [employer]- All Rights Reserved Reading location - IP/workstation name: [facility]
[2017-11-03] MEDS ORDERED: ATORVASTATIN CALCIUM 80 MG TABLET PO SCH (22:00)
[2017-11-04 04:51] LABS: ABSOLUTE BASOPHILS # (AUTO) 0.1 10^3/uL (0.0-0.2); ABSOLUTE EOSINOPHILS # (AUTO) 0.4 10^3/uL (0.0-0.6); ABSOLUTE LYMPHOCYTES (AUTO) 1.8 10^3/uL (0.5-4.7); ABSOLUTE MONOCYTES (AUTO) 0.6 10^3/uL (0.1-1.4); ABSOLUTE NEUT (AUTO) 4.2 10^3/uL (1.7-8.2); BASOPHILS % (AUTO) 0.9 % (0-2); EOSINOPHILS % (AUTO) 5.9 % (0-6); HEMATOCRIT 40.2 % (37.9-51.0); HEMOGLOBIN 13.6 g/dL (13.5-17.0); MEAN CORPUSCULAR HEMOGLOBIN 28.2 pg (27.0-33.4); MEAN CORPUSCULAR HGB CONC 33.8 g/dL (32.0-36.0); MEAN CORPUSCULAR VOLUME 84 fl (80-97); MONOCYTES % (AUTO) 9.1 % (3-13); PLATELET COUNT 270 10^3/uL (150-450); RED BLOOD COUNT 4.81 10^6/uL (4.35-5.55); RED CELL DISTRIBUTION WIDTH 14.5 % (11.5-14.0); SEGMENTED NEUTROPHILS % (AUTO) 59.1 % (42-78); TOTAL CELLS COUNTED % (AUTO) 100 %; WHITE BLOOD COUNT 7.1 10^3/uL (4.0-10.5)
[2017-11-04 05:09] LABS: ANION GAP 10 (5-19); BLOOD UREA NITROGEN 20 mg/dL (7-20); CALCIUM 9.4 mg/dL (8.4-10.2); CARBON DIOXIDE 21 mmol/L (22-30); CHLORIDE 113 mmol/L (98-107); CHOLESTEROL 142.33 mg/dL (0-200); GLUCOSE 161 mg/dL (75-110); POTASSIUM 4.4 mmol/L (3.6-5.0); SODIUM 143.8 mmol/L (137-145); TRIGLYCERIDES 254 mg/dL (<150)
[2017-11-04 05:21] LABS: DIRECT LDL 82 mg/dL (<100)
[2017-11-04 05:29] LABS: VLDL CHOLESTEROL 50.8 mg/dL (10-31)
[2017-11-04] MEDS: INSULIN LISPRO 100 UNIT/ML 3 ML VIAL SUBCUT PRN ×2 (08:26→12:27)
[2017-11-04] MEDS: LEVOTHYROXINE SODIUM 0.025 MG TABLET PO SCH (08:26)
[2017-11-04] MEDS: ENOXAPARIN SODIUM INJ 40 MG/0.4 ML DISP.SYRIN SUBCUT SCH (09:27)
[2017-11-04] MEDS: PSYLLIUM SEED-SF 5.85 GM PACKET PO SCH (09:27)
[2017-11-04] MEDS: ASPIRIN 325 MG TABLET PO SCH (09:28)
[2017-11-04] MEDS: CITALOPRAM HYDROBROMIDE 20 MG TABLET PO SCH (09:28)
[2017-11-04] MEDS: CLOPIDOGREL BISULFATE 75 MG TABLET PO SCH (09:28)
--- NOTE | 2017-11-04 12:09 | XCELERA REPORT ---
[address] [address] Transthoracic Echocardiogram Report Name: LACI NICHOLAS Age: 62 yrs Gender: Male : 1955 Patient Status: Inpatient Patient Location: [address] [place] [address] Study Date: 11/03/2017 03:17 PM Procedure: A complete two-dimensional transthoracic echocardiogram was performed (2D, M-mode, spectral and color flow Doppler). The study was technically adequate with some images being suboptimal in quality. Reason For Study: cva Ordering Physician: NATHALIE ORTIZ Performed By: Hamida Quinn Interpretation Summary The left ventricular ejection fraction is normal. There is mild concentric left ventricular hypertrophy. The left ventricle is grossly normal size. Doppler measurements suggest pseudonormalized left ventricular relaxation, which is associated with grade II/IV or mild to moderate diastolic dysfunction Wall motion cannot be accurately commented on, but no definite regional wall motion abnormalities noted. The right ventricular systolic function is normal. The right atrium is normal in size The left atrium is mildly dilated. There is a trace amount of mitral regurgitation There is no mitral valve stenosis. There is no aortic valve stenosis No aortic regurgitation is present. There is a trace or physiologic amount of tricuspid regurgitation Tricuspid regurgitation jet envelope not well defined to measure RV systolic pressure accurately. The aortic root is not well visualized but is probably normal size. The inferior vena cava appeared normal and decreased > 50% with respiration (RAP 5-10 mmHg) There is no pericardial effusion. MMode/2D Measurements & Calculations RVDd: 3.9 cm LVIDd: 4.6 cm FS: 32.2 % Ao root diam: 3.5 cm IVSd: 1.3 cm LVIDs: 3.1 cm EDV(Teich): 96.0 ml Ao root area: 9.6 cm2 LVPWd: 1.3 cm ESV(Teich): 38.0 ml EF(Teich): 60.5 % LVOT diam: 2.0 cm LVOT area: 3.1 cm2 Doppler Measurements & Calculations MV E max lion: MV dec slope: Ao V2 max: LV V1 max P.6 cm/sec 106.5 cm/sec 4.0 mmHg MV A max lion: 329.3 cm/sec2 Ao max PG: LV V1 max: 76.0 cm/sec MV dec time: 4.5 mmHg 99.8 cm/sec MV E/A: 1.0 0.24 sec RANDI(V,D): 2.9 cm2 PA V2 max: 98.3 cm/sec PA max P.9 mmHg Left Ventricle The left ventricle is grossly normal size. There is mild concentric left ventricular hypertrophy. The left ventricular ejection fraction is normal. Doppler measurements suggest pseudonormalized left ventricular relaxation, which is associated with grade II/IV or mild to moderate diastolic dysfunction. Wall motion cannot be accurately commented on, but no definite regional wall motion abnormalities noted. Right Ventricle The right ventricle is grossly normal size. There is normal right ventricular wall thickness. The right ventricular systolic function is normal. Atria The right atrium is normal in size. The left atrium is mildly dilated. Interarterial septum not well visualized and not well dopplered. Cannot comment on ASD/PFO presence. Mitral Valve The mitral valve is grossly normal. There is no mitral valve stenosis. There is a trace amount of mitral regurgitation. Aortic Valve The aortic valve is not well visualized secondary to technical limitations. The aortic valve opens well. There is no aortic valve stenosis. No aortic regurgitation is present. Tricuspid Valve The tricuspid valve is not well visualized, but is grossly normal. There is no tricuspid stenosis. There is a trace or physiologic amount of tricuspid regurgitation. Tricuspid regurgitation jet envelope not well defined to measure RV systolic pressure accurately. Pulmonic Valve The pulmonic valve is not well visualized. Great Vessels The aortic root is not well visualized but is probably normal size. The inferior vena cava appeared normal and decreased > 50% with respiration (RAP 5-10 mmHg). Effusions There is no pericardial effusion. Incidental Findings No definite cardiac source of CVA/TIA noted on this particular trans- thoracic study. Consider MIKE if clinically indicated. May consider mobile cardiac telemetry monitoring (MCT) for ruling out transient AFIB. : NATHALIE ORTIZ > Sharon Powell
--- NOTE | 2017-11-04 12:59 | RADIOLOGY REPORT (SQ) ---
EXAM DESCRIPTION: MRA NECK WITHOUT COMPLETED DATE/TIME: 11/04/2017 12:44 pm REASON FOR STUDY: r/o vertebral artery stenosis COMPARISON: None. TECHNIQUE: Axial 2-D volume acquisition imaging through the extracranial carotid and vertebral arter ies with reformatting using 3-D MIPS. LIMITATIONS: None. FINDINGS: RIGHT CAROTID ARTERY: No stenosis or occlusive changes. Limited visualization of the orig in. LEFT CAROTID ARTERY: There is a focal high-grade stenosis at the origin of the left internal carotid artery. Carotid duplex study may be of value for further evaluation. VERTEBRAL ARTERY: The extracranial portions of the vertebral basilar system are preserved without rashaun nosis. No aneurysmal dilatation or dissection is seen. OTHER: No other significant finding. A dominant right vertebral artery is identified. IMPRESSION: High-grade stenosis at the level of the origin of the left internal carotid artery. Car otid duplex study may be of value for further evaluation. Other findings as noted above COMMENT: Quality ID #[id number]: Measurements of distal internal carotid diameter were used as the denomin ator for stenosis measurement. TECHNICAL DOCUMENTATION: JOB ID: [id number] [employer]- All Rights Reserved Reading location - IP/workstation name: [email or web address]
--- NOTE | 2017-11-04 14:41 | PDOC DISCHARGE SUMMARY ---
General - Admit/Disc Date/PCP Admission Date/Primary Care Provider: 11/03/17 04:23 Discharge Date: 11/04/17 - Discharge Diagnosis (1) Stroke Is this a current diagnosis for this admission?: Yes Summary: MRI showed acute infarct in the right ki. Patient has a prior history of right CVA with mild left-sided weakness. (2) Left-sided weakness Is this a current diagnosis for this admission?: Yes Summary: Patient will follow-up with [facility] outpatient physical therapy and Occupational Therapy. Be given a rolling walker and bedside commode for home (3) Diabetes Is this a current diagnosis for this admission?: Yes Summary: Continue metformin and insulin (4) Hypothyroidism Is this a current diagnosis for this admission?: Yes Summary: Continue Levoxyl (5) Tobacco abuse Is this a current diagnosis for this admission?: Yes Summary: Counseled on tobacco cessation - Additional Information Resuscitation Status: Full Code Discharge Diet: Cardiac Discharge Activity: Activity As Tolerated, Balance Activity w/Rest Home Medications: Aspirin [Aspirin 325 mg Tablet] 325 mg PO DAILY 11/03/17 Citalopram Hydrobromide [Citalopram HBr] 20 mg PO DAILY 11/03/17 Clopidogrel Bisulfate [Plavix] 75 mg PO DAILY 11/03/17 Diltiazem HCl [Diltiazem 24Hr ER] 180 mg PO DAILY 11/03/17 Fenofibrate Nanocrystallized [Fenofibrate] 145 mg PO QPM 11/03/17 Gabapentin 300 mg PO QPM 11/03/17 L. Rhamnosus GG/Inulin [Culturelle Capsule] 1 each PO DAILY 11/03/17 Levothyroxine Sodium [Synthroid 0.025 mg Tablet] 0.025 mg PO DAILY 11/03/17 Liraglutide [Victoza 2-Murlai] 0.6 mg SQ QHS 11/03/17 Lisinopril 5 mg PO QPM 11/03/17 Metformin HCl 500 mg PO BID 11/03/17 Multivitamin [Multivitamins] 1 each PO DAILY 11/03/17 [place]-3 Fatty Acids/Fish Oil [[place] 3 Fish Oil Softgel] 1 each PO QPM 11/03/17 Psyllium Seed [Metamucil-Sf Powder 5.85 gm Packet] 1 packet PO DAILY 11/03/17 Rosuvastatin Calcium 20 mg PO QPM 11/03/17 Acetaminophen [Tylenol 325 mg Tablet] 650 mg PO Q4HP PRN tablet 11/04/17 History of Present Illness Patient complains of: Left sided weakness History of Present Illness: LACI NICHOLAS is a 62 year old male with a history of CVA and residual left- sided numbness intermittent dizziness, hypertension, diabetes, Tobacco Dependence and depression. Patient presents with 12 hours of weakness on the left side associated with dizziness, slurred speech and word finding difficulty. Symptoms have worsened prompting him to seek evaluation emergency room where his symptoms persist. He denies recent change in medications but admits missing Plavix and aspirin dose today. Initial biochemical and imaging workup are unremarkable with exception to former findings. He started on aspirin and Plavix, referred to the hospitalist for admission. Patient denies palpitations and has had a negative echocardiogram in the last 6 months in the workup of a murmur. The results of which she is told are normal. Hospital Course Hospital Course: She was admitted to [facility] on telemetry. He underwent carotid duplex which showed no significant stenosis. MRI showed acute infarct in the right ki. Neck MRA was ordered due to patient's carotid is not getting good visualization of his vertebral arteries. MRA showed these arteries to be patent. His speech improved over the next 24 hours. Physical therapy and Occupational Therapy saw the patient in consult. They recommended outpatient rehab for patient. He declines home health services. He lives with a supportive spouse. He was counseled on the need to quit smoking. Physical Exam Vital Signs: Temp Pulse Resp BP Pulse Ox 98.2 F 59 L 16 141/73 H 97 11/04/17 12:06 11/04/17 12:06 11/04/17 12:06 11/04/17 12:06 11/04/17 12:06 Intake & Output 11/03/17 11/04/17 11/05/17 06:59 06:59 06:59 Intake Total 10 2915 Balance 10 2915 Weight 91.172 kg 93.7 kg General appearance: PRESENT: no acute distress, obese, well-developed, well- nourished Head exam: PRESENT: atraumatic, normocephalic Eye exam: PRESENT: conjunctiva pink, EOMI, PERRLA. ABSENT: scleral icterus Ear exam: PRESENT: normal external ear exam Mouth exam: PRESENT: moist, tongue midline Neck exam: ABSENT: carotid bruit, JVD, lymphadenopathy, thyromegaly Respiratory exam: PRESENT: clear to auscultation elenita. ABSENT: rales, rhonchi, wheezes Cardiovascular exam: PRESENT: RRR. ABSENT: diastolic murmur, rubs, systolic murmur Pulses: PRESENT: normal dorsalis pedis pul Vascular exam: PRESENT: normal capillary refill GI/Abdominal exam: PRESENT: normal bowel sounds, soft. ABSENT: distended, guarding, mass, organolmegaly, rebound, tenderness Rectal exam: PRESENT: deferred Extremities exam: PRESENT: full ROM. ABSENT: calf tenderness, clubbing, pedal edema Musculoskeletal exam: PRESENT: ambulatory, full ROM, other - 4/5 strength in left sided extremities Neurological exam: PRESENT: alert, awake, oriented to person, oriented to place , oriented to time, oriented to situation, CN II-XII grossly intact, motor sensory deficit - 4/5 muscle strength in left sided extremities Psychiatric exam: PRESENT: appropriate affect, normal mood. ABSENT: homicidal ideation, suicidal ideation Skin exam: PRESENT: dry, intact, warm. ABSENT: cyanosis, rash Results Laboratory Results: 11/04/17 04:40 11/04/17 04:40 11/04/17 11/04/17 04:40 04:40 WBC 7.1 RBC 4.81 Hgb 13.6 Hct 40.2 MCV 84 MCH 28.2 MCHC 33.8 RDW 14.5 H Plt Count 270 Seg Neutrophils % 59.1 Lymphocytes % 25.0 Monocytes % 9.1 Eosinophils % 5.9 Basophils % 0.9 Absolute Neutrophils 4.2 Absolute Lymphocytes 1.8 Absolute Monocytes 0.6 Absolute Eosinophils 0.4 Absolute Basophils 0.1 Sodium 143.8 Potassium 4.4 Chloride 113 H Carbon Dioxide 21 L Anion Gap 10 BUN 20 Creatinine 1.32 H Est GFR ( Amer) > 60 Est GFR (Non-Af Amer) 55 L Glucose 161 H Calcium 9.4 Triglycerides 254 H Cholesterol 142.33 LDL Cholesterol Direct 82 VLDL Cholesterol 50.8 H HDL Cholesterol 31 L Impressions: Head MRI 11/03/17 00:00 IMPRESSION: FOCAL AREA OF RESTRICTED DIFFUSION IN THE RIGHT KI CONSISTENT WITH ACUTE INFARCT. EVIDENCE OF ACUTE STROKE: YES. RIGHT [employer] Head CT 11/03/17 02:07 IMPRESSION: No acute findings. Small chronic right temporal encephalomalacia may indicate prior infarct. Carotid Doppler Study 11/03/17 04:01 IMPRESSION: NO HEMODYNAMICALLY SIGNIFICANT STENOSIS. THE VERTEBRAL ARTERIES ARE NOT ADEQUATELY VISUALIZED. Neck MRA 11/04/17 00:00 IMPRESSION: High-grade stenosis at the level of the origin of the left internal carotid artery. Carotid duplex study may be of value for further evaluation. Other findings as noted above Qualifiers - * PATIENT BEING DISCHARGED WITH ANY OF THE FOLLOWING DIAGNOSIS: Stroke Stroke Pt being discharged on Anti-thrombolytic therapy?: Yes Stroke Pt being discharged on Anti-coagulation therapy?: Yes Stroke Pt being discharged on Statins?: Yes Plan Discharge Plan: Home with outpatient PT and OT Time Spent: Less than 30 Minutes
[2017-11-04 16:27] VITALS: BP 133/70
== END 2017-11-04 16:46 | disposition home or self-care (01) | DRG 65 ==
LOC: ER 01:32 → EH 04:23 → 3S 05:31
PROVIDERS: ADMIT Internal Medicine; ATTEND Internal Medicine
DX: I63.9 Cerebral infarction, unspecified (principal); G81.94 Hemiplegia, unspecified affecting left nondominant side; R47.01 Aphasia; I10 Essential (primary) hypertension; E11.9 Type 2 diabetes mellitus without complications; E03.9 Hypothyroidism, unspecified; I69.392 Facial weakness following cerebral infarction; G93.89 Other specified disorders of brain; F32.9 Major depressive disorder, single episode, unspecified; F17.210 Nicotine dependence, cigarettes, uncomplicated; Z79.01 Long term (current) use of anticoagulants; Z79.82 Long term (current) use of aspirin; Z79.4 Long term (current) use of insulin; Z79.899 Other long term (current) drug therapy
CPT/HCPCS: 36415; 70450; 70547; 70551; 80048; 80053; 80061; 82962; 83036; 83735; 84100; 84443; 84484; 85025; 85610; 85730; 93005; 93010; 93306; 93880; 99285; G8978-GP; G8979-GP; G8987-GO; G8988-GO; G9162-GN; G9163-GN; G9164-GN; J1644; J1650; J3490; J7030

== ENCOUNTER → 2019-03-02 | Outpatient (CLI) | payer MEDICARE, OTHER ==
--- NOTE | 2019-03-02 16:28 | RADIOLOGY REPORT (SQ) ---
EXAM DESCRIPTION: CAROTID DOPPLER COMPLETED DATE/TIME: 03/02/2019 1:55 pm REASON FOR STUDY: BRUIT R09.89 OTH SYMPTOMS AND SIGNS INVOLVING THE CIRC AND RESP SY E11.9 TYPE 2 DIABETES MELLITUS WITHOUT COMPLICATIONS I10 ESSENTIAL (PRIMARY) HYPERTENSION COMPARISON: 11/03/2017 TECHNIQUE: Grayscale ultrasound, Doppler velocity and spectra, and color Doppler images acquired of the extra-cranial carotid and vertebral arteries. Images stored on PACS. LIMITATIONS: None. FINDINGS: RIGHT CAROTID CCA Velocities: Within normal limits. ICA Velocities Peak systolic 74 cm/s. End diastolic 31 cm/s. Proximal ICA/CCA peak systolic ratio 1.19. Spectra normal. No significant plaque. LEFT CAROTID CCA Velocities: Within normal limits. ICA Velocities Peak systolic 96 cm/s. End diastolic 38 cm/s. Proximal ICA/CCA peak systolic ratio 1.71. There is plaque in the proximal left ICA. VERTEBRAL ARTERIES: Antegrade flow. Normal waveforms. SUBCLAVIAN ARTERIES: No finding. OTHER: No other significant finding. IMPRESSION: NO HEMODYNAMICALLY SIGNIFICANT STENOSIS. COMMENT: Quality ID #[id number]: Velocity criteria are extrapolated from the diameter data as defined by t he Society of Radiologists in Ultrasound Consensus Conference. Radiology 2003: 229; 340-346. TECHNICAL DOCUMENTATION: JOB ID: [id number] [employer]- All Rights Reserved Reading location - IP/workstation name: [email or web address]
== END ==
LOC: SP 12:42
PROVIDERS: ATTEND Obstetrics & Gynecology
DX: R09.89 Other specified symptoms and signs involving the circulatory and respiratory systems (principal); E11.9 Type 2 diabetes mellitus without complications; I10 Essential (primary) hypertension; Z86.73 Personal history of transient ischemic attack (TIA), and cerebral infarction without residual deficits
CPT/HCPCS: 93880

== ENCOUNTER 2019-06-08 19:33 | Emergency (ER) | payer MEDICARE, BC ==
--- NOTE | 2019-06-08 19:56 | ER Document Report ---
ED Medical Screen (RME) - General Chief Complaint: Blood Pressure Problem Stated Complaint: HIGH BLOOD PRESSURE Time Seen by Provider: 06/08/19 19:46 Primary Care Provider: BABAR RINCON MD [Primary Care Provider] - Follow up as needed Notes: Patient presents with concern about possible stroke. Patient states blood pressure has been higher than normal today he developed a nosebleed this afternoon and developed increased left arm numbness this morning around 730. Patient states he has chronic numbness to the arm but it worsened this morning. Patient also reports chronic dizziness but states that the dizziness has become more pronounced. Patient does have a history of CVA in the past x5 and currently takes Plavix. Patient also has a history of diabetes and hypertension. I have greeted and performed a rapid initial assessment of this patient. A comprehensive ED assessment and evaluation of the patient, analysis of test results and completion of the medical decision making process will be conducted by additional ED providers. TRAVEL OUTSIDE OF THE [place] IN LAST 30 DAYS: No - Related Data Allergies/Adverse Reactions: smallpox vaccine,live Allergy (Mild, Verified 11/03/17 09:35) RASH Home Medications: [id number] daily. clopidogrel 75 mg po daily. diltiazem 180mg po daily. fenofibrate 145mg po daily. gabapentin 300mg po daily. asa 325mg po daily. levothyroxine0.025 daily. lisinopril 5mg po daily. metformin 500mg po daily. rosuvastatin 20 mg po daily. victoza 0.06mg sq Past Medical History - Social History Chew tobacco use (# tins/day): No Frequency of alcohol use: None Drug Abuse: None - Past Medical History Cardiac Medical History: Reports: Hx Hypertension Denies: Hx Atrial Fibrillation, Hx Congestive Heart Failure, Hx Coronary Artery Disease Endocrine Medical History: Reports: Hx Diabetes Mellitus Type 2 Renal/ Medical History: Denies: Hx Peritoneal Dialysis Psychiatric Medical History: Reports: Hx Depression Past Surgical History: Reports: Hx Appendectomy Physical Exam - Vital signs Vitals: Temp Pulse Resp BP Pulse Ox 99.4 F 66 16 188/67 H 98 06/08/19 19:38 06/08/19 19:38 06/08/19 19:38 06/08/19 19:38 06/08/19 19:38 - General General appearance: Appears well, Alert - Neurological Neuro grossly intact: Yes Cognition: Normal [place] Coma Scale Eye Opening: Spontaneous [place] Coma Scale Verbal: Oriented [place] Coma Scale Motor: Obeys Commands [place] Coma Scale Total: 15 Speech: Normal Course - Vital Signs Vital signs: Temp Pulse Resp BP Pulse Ox 99.4 F 66 16 188/67 H 98 06/08/19 19:38 06/08/19 19:38 06/08/19 19:38 06/08/19 19:38 06/08/19 19:38 Doctor's Discharge - Discharge Referrals: BABAR RINCON MD [Primary Care Provider] - Follow up as needed
--- NOTE | 2019-06-08 20:36 | RADIOLOGY REPORT (SQ) ---
EXAM DESCRIPTION: CLINICAL HISTORY: 63 years Male, HTN, numbness L arm COMPARISON: None. FINDINGS: Cardiomediastinal silhouette is not enlarged. No suspicious lung pleural bone abnormalities. IMPRESSION: Negative chest x-ray.
--- NOTE | 2019-06-08 21:03 | RADIOLOGY REPORT (SQ) ---
EXAM DESCRIPTION: RadLex: CT HEAD WITHOUT IV CONTRAST CLINICAL HISTORY: 63 years Male; HTN, numbness L arm TECHNIQUE: Noncontrast CT head. All CT scans at this facility use dose modulation, iterative reconstruction, and/or weight based dosing when appropriate to reduce radiation dose to as low as reasonably achievable. COMPARISON: MRI 11/03/2017 FINDINGS: No acute hemorrhage or mass effect. Several areas of focal cortical encephalomalacia in the right parietal and temporal lobes are again noted. There is also an old left thalamic lacunar infarct as on prior exam. No acute cortical edema. No CT evidence for acute infarct. Visualized portions of paranasal sinuses and mastoids are clear. Visualized portions of the calvarium are within normal limits. IMPRESSION: 1. No acute intracranial findings. 2. Old thalamic and right temporal/parietal cortical infarcts as on prior exam.
[2019-06-08 21:29] LABS: INTERNATIONAL RATION (INR) 1.05; PROTHROMBIN TIME 13.7 SEC (11.4-15.4)
[2019-06-08 21:30] LABS: ABSOLUTE BASOPHILS # (AUTO) 0.1 10^3/uL (0.0-0.2); ABSOLUTE EOSINOPHILS # (AUTO) 0.4 10^3/uL (0.0-0.6); ABSOLUTE LYMPHOCYTES (AUTO) 2.1 10^3/uL (0.5-4.7); ABSOLUTE MONOCYTES (AUTO) 0.8 10^3/uL (0.1-1.4); ABSOLUTE NEUT (AUTO) 4.4 10^3/uL (1.7-8.2); EOSINOPHILS % (AUTO) 5.7 % (0-6); HEMATOCRIT 39.7 % (37.9-51.0); HEMOGLOBIN 13.4 g/dL (13.5-17.0); LYMPHOCYTES % (AUTO) 26.8 % (13-45); MEAN CORPUSCULAR HEMOGLOBIN 28.7 pg (27.0-33.4); MEAN CORPUSCULAR HGB CONC 33.8 g/dL (32.0-36.0); MEAN CORPUSCULAR VOLUME 85 fl (80-97); MONOCYTES % (AUTO) 10.6 % (3-13); PARTIAL THROMBOPLASTIN TIME 28.1 SEC (23.5-35.8); PLATELET COUNT 314 10^3/uL (150-450); RED BLOOD COUNT 4.68 10^6/uL (4.35-5.55); RED CELL DISTRIBUTION WIDTH 14.8 % (11.5-14.0); SEGMENTED NEUTROPHILS % (AUTO) 55.9 % (42-78); TOTAL CELLS COUNTED % (AUTO) 100 %; WHITE BLOOD COUNT 7.9 10^3/uL (4.0-10.5)
[2019-06-08 21:47] LABS: BLOOD UREA NITROGEN 22 mg/dL (7-20); CALCIUM 10.1 mg/dL (8.4-10.2); CARBON DIOXIDE 26 mmol/L (22-30); CHLORIDE 108 mmol/L (98-107); GLUCOSE 124 mg/dL (75-110); POTASSIUM 4.5 mmol/L (3.6-5.0)
[2019-06-08 21:48] LABS: ALBUMIN 4.5 g/dL (3.5-5.0); ALKALINE PHOSPHATASE 57 U/L (38-126); ANION GAP 9 (5-19); ASPARTATE AMINO TRANSFERASE 34 U/L (17-59); BILIRUBIN,DIRECT 0.3 mg/dL (0.0-0.4); BILIRUBIN,TOTAL 0.3 mg/dL (0.2-1.3); CREATINE KINASE 165 U/L (55-170); TOTAL PROTEIN 7.4 g/dL (6.3-8.2)
[2019-06-08 21:59] LABS: CREATINE KINASE MB 6.33 ng/mL (<4.55); TROPONIN I 0.015 ng/mL
--- NOTE | 2019-06-08 22:01 | EKG REPORT ---
SEVERITY:- ABNORMAL ECG - SINUS RHYTHM FIRST DEGREE AV BLOCK CONSIDER ANTEROSEPTAL INFARCT NONSPECIFIC T ABNORMALITIES, LATERAL LEADS : Confirmed by: Sharon Powell 08-Jun-2019 22:00:17
[2019-06-08] MEDS ORDERED: BACITRACIN ZINC OINTMENT 15 GM TP ONE (22:22)
--- NOTE | 2019-06-08 22:22 | ER Document Report ---
ED General - General Chief Complaint: Blood Pressure Problem Stated Complaint: HIGH BLOOD PRESSURE Time Seen by Provider: 06/08/19 19:46 Primary Care Provider: BABAR RINCON MD [Primary Care Provider] - Follow up as needed TRAVEL OUTSIDE OF THE [place] IN LAST 30 DAYS: No - Related Data Allergies/Adverse Reactions: smallpox vaccine,live Allergy (Mild, Verified 11/03/17 09:35) RASH Home Medications: [id number] daily. clopidogrel 75 mg po daily. diltiazem 180mg po daily. fenofibrate 145mg po daily. gabapentin 300mg po daily. asa 325mg po daily. levothyroxine0.025 daily. lisinopril 5mg po daily. metformin 500mg po daily. rosuvastatin 20 mg po daily. victoza 0.06mg sq Past Medical History - Social History Smoking Status: Current Every Day Smoker Chew tobacco use (# tins/day): No Frequency of alcohol use: None Drug Abuse: None Family History: None - Unknown patient adopted Patient has suicidal ideation: No Patient has homicidal ideation: No - Past Medical History Cardiac Medical History: Reports: Hx Hypertension Denies: Hx Atrial Fibrillation, Hx Congestive Heart Failure, Hx Coronary Artery Disease Endocrine Medical History: Reports: Hx Diabetes Mellitus Type 2 Renal/ Medical History: Denies: Hx Peritoneal Dialysis Psychiatric Medical History: Reports: Hx Depression Past Surgical History: Reports: Hx Appendectomy Physical Exam - Vital signs Vitals: Temp Pulse Resp BP Pulse Ox 99.4 F 66 16 188/67 H 98 06/08/19 19:38 06/08/19 19:38 06/08/19 19:38 06/08/19 19:38 06/08/19 19:38 - Notes Notes: Patient was referred in by family doctor for evaluation of elevated blood pressure. He says this afternoon he developed a spontaneous nosebleed on the right. He checked his blood pressure was elevated and he felt a little lightheaded. Ports he has some increasing numbness on his left arm. He had no headache associated with this no abnormal vision nausea vomiting chest pain or shortness of breath. No problems with his gait said the lightheadedness was just brief and has resolved completely. Chronic numbness of his left arm and leg and increased only slightly. This lasted for a brief period of time then resolved he had no weakness in the arm. No abnormal speech. Medical history sniffing for hypertension diabetes as well as previous CVAs with left-sided residual weakness. Social history he does not smoke or drink at all Patient is on aspirin and Plavix. Says he does not use nonsteroidals Aleve or Goody's for pain Review of systems pertinent positives and negatives in HPI otherwise all the systems were reviewed and acutely negative has had occasional nosebleeds in the past usually related to weather URIs 1 PHYSICIAN EXAM -vital signs are noted triage note and note from triage reviewed GENERAL: Well-appearing, well-nourished and in __distress____ HEAD: Atraumatic, normocephalic. EYES: Pupils equal round and reactive to light, extraocular movements intact, sclera anicteric, conjunctiva are normal. ENT: nares patent, oropharynx clear without exudates. Moist mucous membranes. No blood in the posterior pharynx NECK: supple without lymphadenopathy LUNGS: Breath sounds clear to auscultation bilaterally and equal. No wheezes rales or rhonchi. HEART: Regular rate and rhythm without murmurs ABDOMEN: Soft, nontender, normoactive bowel sounds. EXTREMITIES: No deformity, no edema. NEUROLOGICAL: Alert and oriented x4. Cranial nerves he has symmetrical smile facies and shoulder shrug. His motor strength is 5/5 bilaterally in the upper and lower extremities. Toes downgoing. Sensation is intact to light touch i and pinprick in the upper lower extremities s a negative Romberg and normal gait PSYCH: Normal mood, normal affect. SKIN: Warm, Dry, normal turgor, no rashes or lesions noted. BACK-nontender in the midline Differential diagnoses TIA abdomen platelets nasal congestion Course - Re-evaluation Re-evalutation: 06/08/19 23:04 ED patient is remained stable here. He has no additional episodes of nosebleeds. He did have some dried blood in the right nares and I recommend that we clean his nose out and see if there is an area that we can cauterize. Or after leaving the room he told nursing staff he just wanted to go home Medical decision making patient presents with some epistaxis has resolved. Has had this before but the dry weather suspect this most likely etiology. [place] studies are unremarkable really it is known to suggest that he had a TIA he is already on maximal therapy with aspirin and Plavix. This point he can be discharged home I do not think we need to adjust his blood pressure medicine now but he will need to check it at home and follow-up with his family doctor next week I have talked to him about treatment for his nosebleed At this time there is no indication for admission. I have discussed the findings with patient/family with return precautions and follow-up recommendations. Verbal discharge instructions given at the bedside and opportunity for questions given. Medication warnings were given if indicated. Patient is in agreement with this plan and has verbalized understanding of return precautions and the need for primary care follow-up as directed.. - Vital Signs Vital signs: Temp Pulse Resp BP Pulse Ox 99.4 F 60 16 187/86 H 98 06/08/19 19:38 06/08/19 21:51 06/08/19 21:51 06/08/19 21:51 06/08/19 21:51 - Laboratory Result Diagrams: 06/08/19 21:11 06/08/19 21:11 Laboratory results interpreted by me: 06/08/19 06/08/19 06/08/19 21:11 21:11 21:11 Hgb 13.4 L RDW 14.8 H Chloride 108 H BUN 22 H Creatinine 1.48 H Est GFR ( Amer) 58 L Est GFR (MDRD) Non-Af 48 L Glucose 124 H POC Glucose CK-MB (CK-2) 6.33 H 06/08/19 21:45 Hgb RDW Chloride BUN Creatinine Est GFR ( Amer) Est GFR (MDRD) Non-Af Glucose POC Glucose 117 H CK-MB (CK-2) - Diagnostic Test Radiology reviewed: Reports reviewed - EKG Interpretation by Me Additional EKG results interpreted by me: 06/08/19 23:03 EKG read by me shows a normal sinus rhythm with some minimal nonspecific ST wave changes and first-degree heart block. Is unchanged from his previous EKG for October 2017 Discharge - Discharge Clinical Impression: Epistaxis Hypertension Qualifiers: Hypertension type: unspecified Qualified Code(s): I10 - Essential (primary) hypertension Disposition: HOME, SELF-CARE Additional Instructions: Nosebleed Instructions There is a significant chance of re-bleeding following a nosebleed. Proper care makes this less likely. Do not touch the nose for 24 hours. Do not blow the nose forcefully for one week. After 24 hours, gently apply Vaseline ointment to both nostrils with the tip of a finger, three times a day, for one week. It's normal to have a bloody mucous discharge for a few days. If active bleeding recurs, blow all the blood from the nose, then sit quietly and pinch the nose as firmly as possible for 10 minutes. If this does not stop the bleeding, return for further care. If packing was left in the nose and it starts to come out of the nostril, either tuck it back in or cut it off. Don't pull it out. Return for recheck and removal of the packing when instructed. Persons with frequent nosebleeds should avoid aspirin (unless prescribed for another reason). Humidity in the bedroom, and petroleum jelly applied to the nostrils at night may help. Apply bacitracin or Vaseline to both sides of the nose twice a day for 5 days Avoid blowing your nose or sneezing avoid hot liquids Check your blood pressure twice a week and record the numbers Follow up with your family doctor next week Forms: Elevated Blood Pressure Referrals: BABAR RINCON MD [Primary Care Provider] - Follow up as needed
[2019-06-08] MEDS ORDERED: OXYMETAZOLINE HCL 0.05% NASAL SPRAY 15 ML BOTTLE NASL ONE (22:23)
[2019-06-08] MEDS ORDERED: SILVER NITRATE APPLICATOR 1 APPLIC STICK..EA. 10/PACKAGE TOP ONE (22:24)
[2019-06-08 23:24] VITALS: BP 151/68
== END 2019-06-08 23:31 | disposition home or self-care (01) ==
LOC: ER 19:33
DX: R04.0 Epistaxis (principal); I10 Essential (primary) hypertension; F17.200 Nicotine dependence, unspecified, uncomplicated; E11.9 Type 2 diabetes mellitus without complications; Z79.01 Long term (current) use of anticoagulants; Z79.82 Long term (current) use of aspirin; Z79.84 Long term (current) use of oral hypoglycemic drugs
CPT/HCPCS: 36415; 70450; 71045; 80053; 82550; 82553; 82962; 84484; 85025; 85610; 85730; 93005; 93010; 99284; J3490

== ENCOUNTER → 2019-10-10 | Outpatient (CLI) | payer MEDICARE, BC ==
--- NOTE | 2019-10-10 12:45 | RADIOLOGY REPORT (SQ) ---
EXAM DESCRIPTION: CAROTID DOPPLER IMAGES COMPLETED DATE/TIME: 10/10/2019 12:33 pm REASON FOR STUDY: DIZZINESS I67.9 CEREBROVASCULAR DISEASE, UNSPECIFIED R42 DIZZINESS AND GIDDINESS COMPARISON: 03/02/2019 TECHNIQUE: Grayscale ultrasound, Doppler velocity and spectra, and color Doppler images acquired of the extra-cranial carotid and vertebral arteries. Images stored on PACS. LIMITATIONS: None. FINDINGS: RIGHT CAROTID CCA Velocities: Within normal limits. ICA Velocities Peak systolic 1.08 m/s. End diastolic 0.41 m/s. Proximal ICA/CCA peak systolic ratio 1.7. Mild heterogeneous plaque. LEFT CAROTID CCA Velocities: Within normal limits. ICA Velocities Peak systolic 0.71 m/s. End diastolic 0.26 m/s. Proximal ICA/CCA peak systolic ratio 1.2. Complex partially calcified plaque. VERTEBRAL ARTERIES: Antegrade flow. Normal waveforms. SUBCLAVIAN ARTERIES: No finding. OTHER: No other significant finding. IMPRESSION: NO HEMODYNAMICALLY SIGNIFICANT STENOSIS. COMMENT: Quality ID #[id number]: Velocity criteria are extrapolated from the diameter data as defined by t he Society of Radiologists in Ultrasound Consensus Conference. Radiology 2003: 229; 340-346. TECHNICAL DOCUMENTATION: JOB ID: [id number] [email or web address]- All Rights Reserved Reading location - IP/workstation name: [email or web address]
== END ==
LOC: SP 08:45
PROVIDERS: ATTEND Obstetrics & Gynecology
DX: R42 Dizziness and giddiness (principal); I67.9 Cerebrovascular disease, unspecified; R01.1 Cardiac murmur, unspecified
CPT/HCPCS: 93880